=== PATIENT | female | born 1950 | race Caucasian/White ===

== ENCOUNTER → 2017-06-24 | Outpatient (CLI) | payer OTHER ==
[~2017-06-24] MED LIST: PAXIL PO; PHENERGAN25 MG PO; ZESTORETIC 20/11 TAB PO; ZOCOR PO
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
== END | disposition home or self-care (01) ==
LOC: CWCC 10:24
DX: Z12.31 Encounter for screening mammogram for malignant neoplasm of breast (principal)
CPT/HCPCS: G0202